=== PATIENT | female | born 1960 | race Caucasian/White ===

== ENCOUNTER 2025-02-22 13:00 | Outpatient (AMB) | payer OTHER, SELFPAY ==
[2025-02-22 13:08] VITALS: BP 130/78; PULSE 85; TEMP 36.2; O2SAT 97; BMI 23.3
--- NOTE | 2025-02-22 13:08 | MHC.PC.OV ---
Vital Signs 02/22/25 13:08 Height 5 ft 4 in Weight 135 lb 8 oz BMI 23.3 BP 130/78 Blood Pressure Location Lt brachial Position Sitting Pulse 85 Pulse Source Pulse Oximeter Temp 97.1 F Temp Source Temporal Artery Scan Pulse Oximetry (%) 97 Oxygen Delivery Method Room Air Intake Visit Reasons: [employer]PUT[employer]IAN // Stomach issues Allergies Penicillins Allergy (Intermediate, Verified 02/22/25 13:12) Hives Medication List - Last Reconciled 02/22/25 by Clovis Holbrook MD No Known Home Meds Tobacco use date assessed: 02/22/25 Fall risk assessment: No Falls in past year Last assessed Fall Risk: 02/22/25 Dental Screening Dental Screen Date: 02/22/25 Did you have a dental visit in the last 12 months?: Yes Did you have a dental problem in the last 6 months where you did not have access to dental care?: No Was dental information given to patient?: Patient has dentist HPI HPI Comments History of Present Illness Details The patient is a 64-year-old female presenting to [facility] and for evaluation of abdominal bloating and weight gain. She reports constantly feeling bloated and full, which started this year and prevents her from drinking water as she used to. The bloating is not associated with pain. She has also experienced weight gain, which is unusual for her, as her weight has typically been stable at 128-130 pounds. The patient reports consuming some dairy products, such as cream in her coffee and butter, and notes that eating feta cheese causes her to become flushed. She eats red meat in moderation, consumes pasta about twice a month, and does not eat much bread. Her daily physical activity includes a half-hour walk. The patient reports taking no medications. She denies any history of smoking. She denies a history of thyroid problems. Regarding health maintenance, she has never had a colonoscopy and her last mammogram was five years ago. Her immunization status for tetanus, shingles, pneumonia, and influenza is unclear. [facility] Surgical History (Updated 02/22/25 @ 13:13 by Carol Copeland CMA) No pertinent past surgical history Family History (Updated 02/22/25 @ 13:14 by Carol Copeland CMA) Mother Lung cancer Father Heart attack Social History (Updated 02/22/25 @ 13:13 by Carol Copeland CMA) Household Members: Significant Other Housing: House Alcohol intake: current Patient Tobacco Use Status: Never used Tobacco e-Cigarette/Vaping Use: Never Used Use of substances other than those prescribed or required for medical reasons: No service: No Current occupational status: retired Cognitive needs: No Hearing needs: No Vision needs: No Questionnaire PHQ-9 Over the last 2 weeks, how often have you been bothered by any of the following problems? 1. Little interest or pleasure in doing things: not at all 2. Feeling down, depressed, or hopeless: not at all 3. Trouble falling or staying asleep, or sleeping too much: not at all 4. Feeling tired or having little energy: not at all 5. Poor appetite or overeating: not at all 6. Feeling bad about yourself - or that you are a failure or have let yourself or your family down: not at all 7. Trouble concentrating on things, such as reading the newspaper or watching television: not at all 8. Moving or speaking so slowly that other people could have noticed. Or the opposite - being so fidgety or restless that you have been moving around a lot more than usual: not at all 9. Thoughts that you would be better off or of hurting yourself in some way: not at all Total score: 0 Depression Screening Interpretation: Negative Depression Screening Done: Yes 16687 - PHQ-9 Billing: Yes Source: Developed by Drs. Oc Haas, Seema Pastor, Garo Vora and colleagues, with an educational elizabeth from [employer]. Thrive Questionnaire Date Thrive assessed: 02/22/25 I am a: Patient What is your living situation today?: I have a steady place to live Within the past 12 months, did the food you bought not last and you didn't have the money to get more?: Never true Within the past 12 months, did you worry whether your food would run out before you got money to buy more?: Never true Do you have trouble paying for medicines?: No Do you have trouble getting transportation to medical appointments?: No Do you have trouble paying your heating and electricity bill?: No Do you have trouble taking care of your child, family member or friend?: No Do you have trouble with day-to-day activities such as bathing, preparing meals, shopping, managing finances, etc.?: No Are you currently unemployed and looking for a job?: No Are you interested in more education?: No Please select the resources that you would like help with: None Currently or been in a relationship where the following occur: No concerns reported THRIVE Score: 0 AUDIT C Alcohol Use Questionnaire (AUDIT-C) 1. How often do you have a drink containing alcohol?: Monthly or less 2. How many drinks containing alcohol do you have on a typical day when you are drinking?: 1 or 2 3. How often do you have six or more drinks on one occasion?: Never Total Score: 1 MADDIE-7 AMB Questionnaire MADDIE-7 Date MADDIE - 7 assessed: 02/22/25 Feeling nervous, anxious, or on edge: 0 = Not at all Not being able to stop or control worryin = Not at all Worrying too much about different things: 0 = Not at all Trouble relaxin = Not at all Being so restless that it is hard to sit still: 0 = Not at all Becoming easily annoyed or irritable: 0 = Not at all Feeling afraid as if something awful might happen: 0 = Not at all Total MADDIE-7 score (0-4 normal; 5-9 mild; 10-14 moderate; 15-21 severe): 0 Source: Developed by Drs. Oc Haas, Seema Pastor, Garo Vora and colleagues, with an educational elizabeth from [employer]. MADDIE-7 Assessment Billing MADDIE-7 Assessment Tool: MADDIE-7 Assessment 68862 Review of Systems Const Details: As per HPI. Physical exam (Primary Care) Vital Signs: Last Vital Signs Temp 97.1 F 02/22/25 13:08 Pulse 85 02/22/25 13:08 BP 130/78 02/22/25 13:08 Pulse Ox 97 02/22/25 13:08 Oxygen Delivery Method Room Air 02/22/25 13:08 BMI result Body Mass Index 23.3 Tobacco/Smoking Status: Tobacco use Status Tobacco use date assessed 02/22/25 02/22/25 13:15 Patient Tobacco Use Status Never used Tobacco 02/22/25 13:15 e-Cigarette/Vaping Use Never Used 02/22/25 13:15 PHQ-9: PHQ-9 Score PHQ-9: Total score 0 02/22/25 13:15 Depression Screening Interpretation: Negative Thrive Assessment: Date of Thrive Assessment Date Thrive assessed 02/22/25 02/22/25 13:15 Currently or been in a relationship where the following occur: No concerns reported Const Other: Pertinent findings are in BOLD GENERAL APPEARANCE NAD, activity normal for age, well developed/ well nourished, no cyanosis, pallor, or diaphoresis. EYES lids/conjunctiva normal. EARS/NOSE/THROAT Mucous membranes moist, nares normal, lips/teeth normal uvula midline without oral pharyngeal erythema, exudate or swelling TMs normal bilaterally. No lymphangitis/lymphedema. HEAD/NECK normocephalic atraumatic, no facial trauma, neck is supple. RESPIRATORY respiratory effort normal, speaks in full sentences, no tripod position, no accessory muscle use. Lungs clear to auscultation without rhonchi, wheezes, rales CARDIAC Regular rate and rhythm, no edema. ABDOMINAL Soft, ND/NT. No evidence of fluid wave. No pulsatile masses on exam, rebound tenderness, Felix sign or pain over Mcburney's point. Hyperactive bowel sounds. MUSCLES/EXTREMITIES No abnormal range of motion, no swelling. SKIN Warm, pink and dry. No rashes, dermatoses, petechiae or lesions. NEUROLOGICAL Speech is clear and appropriate. Normal level of consciousness. Gait and coordination are normal. 5/5 strength in all extremities. PSYCH Normal mood and affect. Judgement/competence is appropriate Coding Level of Care Code New Pt Level 4 (03519) New Pt Prev Care 40-64y(53037) Diagnoses Bloating R14.0 Healthcare maintenance Z00.00 Additional Codes MADDIE-7 Assessment Billing - MADDIE-7 Assessment Tool: MADDIE-7 Assessment 56603 ([id number]) PHQ-9 - 00379 - PHQ-9 Billing: Yes ([id number]) Time Spent (min) 30 Assessment & Plan Assessment & Plan (1) Bloating: Code(s): R14.0 - Abdominal distension (gaseous) Category: Medical Plan: - The patient's bloating is suspected to be related to dietary triggers or increased colon sensitivity, which can occur with age. - To investigate further, an elimination diet was recommended, involving the temporary removal of dairy, sugars, red meat, and gluten to identify potential triggers. - The patient was advised to continue drinking water. - A referral for a screening colonoscopy was placed to rule out underlying pathology given the patient's age. - The patient preferred to attempt dietary modification before trying [id number] remedies. (2) Healthcare maintenance: Code(s): Z00.00 - Encounter for general adult medical examination without abnormal findings Category: Medical Plan: CBC, CMP, Lipid panel, A1C, TSH w T4, vit D. Ordered. Shingles 2 doses when >50 yo. Declined. COVID: two doses. Declined. Tdap: We will look at records. Pneumococcal: >50 yo. 18-49 with CKD, lung disease, weakened immune system, Heart disease, DM, cochlear implant. Declined. Flu vaccine: Declined. Colonoscopy: 45-75. ordered today. AAA: 65 -75. Never smoker. CT lun - 80. Never smoker. HPV: Aged out. HIV: Ordered today. HCV: Ordered today. Dexa: Next year. Mammogram: Ordered today. Plan I discussed with the patient that her bloating is likely related to dietary intolerances, as the colon can become more sensitive with age. We discussed a strategy of an elimination diet, where she would systematically remove potential triggers like dairy, sugar, red meat, and gluten to identify the cause of her symptoms. I reassured her that while I do not think her symptoms indicate cancer, a colonoscopy is an important screening tool given her age and new symptoms, so a referral was placed. I informed her that I am ordering general wellness labs, which will require her to be fasting, and an order for a mammogram, as she is overdue for screening. We also reviewed her immunization status, and she will attempt to get her records for our next visit. She agreed to the plan and expressed a preference for dietary changes over medication at this time. We scheduled a follow-up for one year but she can return sooner if needed. Orders: Orders Complete Blood Count no Diff Today Z00.00 - Encounter for general adult medical examination without abnormal findings Comprehensive Met. Panel Today Z00.00 - Encounter for general adult medical examination without abnormal findings UA and rflx microscopic Today Z00.00 - Encounter for general adult medical examination without abnormal findings Vitamin D 25-OH Total Today Z00.00 - Encounter for general adult medical examination without abnormal findings MM screening mammo BI Today Z12.31 - Encounter for screening mammogram for malignant neoplasm of breast Hemoglobin A1c Today Z00.00 - Encounter for general adult medical examination without abnormal findings Hepatitis C Antibody Reflex Today Z00.00 - Encounter for general adult medical examination without abnormal findings HIV Ab/Ag Today Z00.00 - Encounter for general adult medical examination without abnormal findings TSH reflex Free T4 Today Z00.00 - Encounter for general adult medical examination without abnormal findings Lipid Panel Today Z00.00 - Encounter for general adult medical examination without abnormal findings Referrals Open Access Screening Colonoscopy Referral Z12.11 - Encounter for screening for malignant neoplasm of colon, Z12.12 - Encounter for screening for malignant neoplasm of rectum
== END 2025-02-22 13:37 | disposition home or self-care (01) ==
LOC: HO.HMCH 13:01
PROVIDERS: Visit Provider Internal Medicine
DX: Z00.00 Encounter for general adult medical examination without abnormal findings (principal); R14.0 Abdominal distension (gaseous)

== ENCOUNTER → 2025-02-22 13:00 | Outpatient (BNVA) | payer OTHER, SELFPAY | PROVIDERS: Visit Provider Internal Medicine | DX: R14.0 Abdominal distension (gaseous) (principal); Z00.00 Encounter for general adult medical examination without abnormal findings; Z13.31 Encounter for screening for depression; Z13.39 Encounter for screening examination for other mental health and behavioral disorders; Z12.31 Encounter for screening mammogram for malignant neoplasm of breast; Z12.11 Encounter for screening for malignant neoplasm of colon; Z28.29 Immunization not carried out because of patient decision for other reason | CPT/HCPCS: 96127; 99386 ==